=== PATIENT | female | born 1955 | race African-American/Black ===

== ENCOUNTER 2017-10-31 10:58 | Emergency (ER) | payer SELFPAY, BC, MEDICAID | END 2017-10-31 22:20 | disposition left against medical advice (07) | LOC: E/R 22:20 | DX: Z53.21 Procedure and treatment not carried out due to patient leaving prior to being seen by health care provider (principal) ==

== ENCOUNTER 2018-11-10 19:15 | Inpatient (IN) | payer BC, MEDICAID ==
[2018-11-10] MEDS: ALBUTEROL 0.083% (NEB) 2.5 MG/3 ML AMP NEB (20:41)
[2018-11-10] MEDS: IPRATROPIUM (NEB) 0.5 MG/2.5 ML AMP NEB (20:41)
[2018-11-10 20:43] LABS: ADD MAN DIFF? NO
[2018-11-10] MEDS: ONDANSETRON 4 MG INJ IV (20:47)
[2018-11-10] MEDS: ASPIRIN 325 MG TAB PO (20:47)
[2018-11-10] MEDS: morphine 4 MG/ML VIAL IV (20:47)
[2018-11-10 20:59] LABS: INR 0.88; PARTIAL THROMBOPLASTIN TIME 24.4 Sec (23.0-35.0); PT RATIO 0.9
[2018-11-10 21:01] LABS: BASOPHILS % 0.4 % (0.0-2.0); EOSINOPHILS # 0.1 10^3/ul (0.0-0.5); EOSINOPHILS % 1.8 % (0.0-7.0); HEMATOCRIT 42.9 % (37.0-47.0); HEMOGLOBIN 13.4 g/dl (12.0-16.0); LYMPHOCYTES # 2.5 10^3/ul (0.8-2.9); LYMPHOCYTES % 32.4 % (15.0-51.0); MEAN CORPUSCULAR HEMOGLOBIN 26.8 pg (29.0-33.0); MEAN CORPUSCULAR HGB CONC 31.2 g/dl (32.0-37.0); MEAN CORPUSCULAR VOLUME 85.8 fl (82.0-101.0); MEAN PLATELET VOLUME 9.4 fl (7.4-10.4); MONOCYTE # 1.1 10^3/ul (0.3-0.9); MONOCYTES % 13.8 % (0.0-11.0); NEUTROPHIL # 3.9 10^3/ul (1.6-7.5); NEUTROPHILS % 51.3 % (39.0-77.0); PLATELET COUNT 338 10^3/UL (140-415); RED CELL DISTRIBUTION WIDTH 15.9 % (11.5-14.5)
[2018-11-10 21:01] LABS: WHITE BLOOD COUNT 7.7 10^3/ul (4.8-10.8)
[2018-11-10 21:09] LABS: ALANINE AMINOTRANSFERASE 16 IU/L (13-69); ALBUMIN 4.1 g/dl (3.3-4.9); ALKALINE PHOSPHATASE 111 IU/L (42-121); ANION GAP 9 (5-13); ASPARTATE AMINO TRANSFERASE 26 IU/L (15-46); BILIRUBIN,INDIRECT 0.2 mg/dl (0-1.1); BILIRUBIN,TOTAL 0.2 mg/dl (0.2-1.3); BLOOD UREA NITROGEN 14 mg/dl (7-20); CALCIUM 10.1 mg/dl (8.4-10.2); CARBON DIOXIDE 26 mmol/L (21-31); CHLORIDE 108 mmol/L (97-110); CREATINE KINASE 216 IU/L (23-200); CREATININE 1.35 mg/dl (0.44-1.00); Estimated GFR 48 mL/min (>60); GLUCOSE 109 mg/dl (70-220); SODIUM 143 mmol/L (135-144); TOTAL PROTEIN 7.8 g/dl (6.1-8.1)
[2018-11-10 21:20] LABS: B-TYPE NATRIURETIC PEPTIDE 701 PG/ML (0-125); CK INDEX 0.7; CK-MB 1.45 ng/ml (0.0-2.4); TROPONIN-I < 0.012 ng/ml (0.000-0.120)
[2018-11-10] MEDS: METOPROLOL 25 MG TAB PO (23:00)
[2018-11-10] MEDS ORDERED: ACETAMINOPHEN 325 MG TAB PO ×2 (23:00)
[2018-11-10] MEDS ORDERED: ONDANSETRON 4 MG INJ IV (23:00)
[2018-11-10] MEDS ORDERED: DOCUSATE SODIUM 100 MG CAP PO (23:00)
[2018-11-10] MEDS ORDERED: BISACODYL (EC) 5 MG TAB PO (23:00)
[2018-11-10] MEDS ORDERED: NACL 0.9% 3 ML SYG IV (23:00)
[2018-11-10] MEDS ORDERED: NITROGLYCERIN (SL) 0.4 MG TAB SL (23:00)
[2018-11-10] MEDS: AMLODIPINE 5 MG TAB PO (23:00)
[2018-11-10] MEDS ORDERED: GLUCAGON 1 MG INJ IM (23:30)
[2018-11-10] MEDS ORDERED: DEXTROSE 50% 50 ML SYRINGE IV ×2 (23:30)
[2018-11-10] MEDS ORDERED: GLUCOSE GEL 15 GRAM TUBE PO ×2 (23:30)
[2018-11-11] MEDS: morphine 4 MG/ML VIAL IV (00:08)
[2018-11-11] MEDS: ONDANSETRON 4 MG INJ IV (00:09)
[2018-11-11] MEDS: INSULIN GLARGINE [LANTus] (100 UNITS/ML) SYG SC ×2 (00:39→23:00)
[2018-11-11 01:08] LABS: D-DIMER 675.51 ng/ml (<460)
[2018-11-11] MEDS: ACCU-CHEK XX (02:00)
[2018-11-11] MEDS: morphine 2 MG INJ IV ×5 (03:29→23:04)
[2018-11-11] MEDS ORDERED: ENOXAPARIN 80 MG/0.8 ML SYG SC (04:00)
[2018-11-11] MEDS: ENOXAPARIN 80 MG/0.8 ML SYG SC (04:27)
[2018-11-11 05:55] LABS: ADD MAN DIFF? NO
[2018-11-11 06:06] LABS: WHITE BLOOD COUNT 8.1 10^3/ul (4.8-10.8)
[2018-11-11 06:06] LABS: BASOPHILS % 0.4 % (0.0-2.0); EOSINOPHILS # 0.1 10^3/ul (0.0-0.5); EOSINOPHILS % 1.2 % (0.0-7.0); HEMATOCRIT 39.3 % (37.0-47.0); HEMOGLOBIN 11.8 g/dl (12.0-16.0); LYMPHOCYTES # 2.1 10^3/ul (0.8-2.9); LYMPHOCYTES % 25.4 % (15.0-51.0); MEAN CORPUSCULAR HEMOGLOBIN 26.7 pg (29.0-33.0); MEAN CORPUSCULAR VOLUME 88.9 fl (82.0-101.0); MEAN PLATELET VOLUME 9.2 fl (7.4-10.4); MONOCYTE # 0.9 10^3/ul (0.3-0.9); MONOCYTES % 10.9 % (0.0-11.0); NEUTROPHILS % 61.6 % (39.0-77.0); PLATELET COUNT 274 10^3/UL (140-415); RED BLOOD COUNT 4.42 10^6/ul (4.20-5.40); RED CELL DISTRIBUTION WIDTH 15.8 % (11.5-14.5)
[2018-11-11 06:40] LABS: HEMOGLOBIN A1C 7.3 % (0-5.9)
[2018-11-11 06:47] LABS: ALANINE AMINOTRANSFERASE 101 IU/L (13-69); ALBUMIN 3.3 g/dl (3.3-4.9); ALKALINE PHOSPHATASE 122 IU/L (42-121); ANION GAP 0 (5-13); ASPARTATE AMINO TRANSFERASE 284 IU/L (15-46); BILIRUBIN,INDIRECT 0.2 mg/dl (0-1.1); BILIRUBIN,TOTAL 0.2 mg/dl (0.2-1.3); BLOOD UREA NITROGEN 17 mg/dl (7-20); CALCIUM 9.4 mg/dl (8.4-10.2); CARBON DIOXIDE 30 mmol/L (21-31); CHLORIDE 110 mmol/L (97-110); CHOL/HDL RATIO 6.3 RATIO; CHOLESTEROL 208 mg/dl (100-200); CREATININE 1.64 mg/dl (0.44-1.00); Estimated GFR 38 mL/min (>60); GLUCOSE 136 mg/dl (70-220); HDL CHOLESTEROL 33 mg/dl (35-98); LDL CHOLESTEROL,CALCULATED 121 mg/dl; MAGNESIUM 2.1 mg/dl (1.7-2.5); POTASSIUM 4.3 mmol/L (3.5-5.1); SODIUM 140 mmol/L (135-144); TOTAL PROTEIN 6.3 g/dl (6.1-8.1); TRIGLYCERIDES 268 mg/dl (0-149)
[2018-11-11] MEDS: LEVOTHYROXINE 50 MCG TAB PO (06:47)
[2018-11-11 06:55] LABS: C-REACTIVE PROTEIN 0.8 mg/dl (0.0-0.9)
[2018-11-11 07:34] LABS: ERYTHROCYTE SEDIMENTATION RATE 20 mm/Hr (0-30)
[2018-11-11] MEDS: INSULIN ASPART [NOVOLOG] 3 ML PEN SC ×4 (07:43→21:00)
[2018-11-11 07:48] LABS: AADO2 Arterial 51.5 mmHg (7.0-24.0); Allen Test ACCEPTAB; Arterial Base Excess 1.2 mmol/L (-3.0-3); Arterial Blood Gas Oxygen Sat 96.1 mmHG (95.0-98.0); Arterial COHb 0.8 % (0.0-3.0); Arterial Fraction of Oxyhgb 95.1 % (93.0-99.0); Arterial HCO3 26.9 mmol/L (22.0-26.0); Arterial MetHb 0.2 % (0.0-1.5); Arterial pCO2 47.2 mmhg (35-45); MODE NASAL CANNULA; Site Right Radial
[2018-11-11] MEDS: DULOXETINE 20 MG CAP DR PO (08:47)
[2018-11-11] MEDS: CLOPIDOGREL 75 MG TAB PO (08:47)
[2018-11-11] MEDS: METOPROLOL 25 MG TAB PO ×3 (08:48→11:55)
[2018-11-11] MEDS: AMLODIPINE 5 MG TAB PO ×2 (08:48→22:19)
[2018-11-11] MEDS ORDERED: FLUTICASONE/VILANTEROL 100-25 INH (09:00)
[2018-11-11] MEDS ORDERED: FUROSEMIDE 20 MG TAB PO (09:00)
[2018-11-11] MEDS: FUROSEMIDE 20 MG INJ IV (09:23)
[2018-11-11] MEDS ORDERED: ALBUTEROL/IPRATROPIUM (NEB) 3 ML AMP HHN (10:30)
[2018-11-11 13:23] LABS: CREATINE KINASE 174 IU/L (23-200)
[2018-11-11 13:36] LABS: CK INDEX 0.7; CK-MB 1.27 ng/ml (0.0-2.4); TROPONIN-I < 0.012 ng/ml (0.000-0.120)
[2018-11-11 14:13] LABS: LIPASE 157 U/L (23-300)
[2018-11-11 19:31] LABS: CREATINE KINASE 174 IU/L (23-200)
[2018-11-11] MEDS: ARFORMOTEROL TARTRATE 15MCG/2 ML AMP NEB (19:40)
[2018-11-11] MEDS: BUDESONIDE (NEB) 0.25 MG/2 ML AMP HHN (19:40)
[2018-11-11] MEDS: ALBUTEROL/IPRATROPIUM (NEB) 3 ML AMP HHN (19:40)
[2018-11-11 19:45] LABS: CK-MB 1.68 ng/ml (0.0-2.4); TROPONIN-I < 0.012 ng/ml (0.000-0.120)
[2018-11-11] MEDS ORDERED: ATORVASTATIN 20 MG TAB PO ×2 (21:00)
[2018-11-11] MEDS: SOD CHLORIDE 0.45% 1,000 ML IV (22:17)
[2018-11-11] MEDS: ATORVASTATIN 80 MG TAB PO (22:18)
[2018-11-11] MEDS: EZETIMIBE 10 MG TAB PO (22:19)
[2018-11-12] MEDS: ACCU-CHEK XX (02:00)
[2018-11-12] MEDS: morphine 2 MG INJ IV ×5 (03:19→20:56)
[2018-11-12] MEDS ORDERED: ENOXAPARIN 80 MG/0.8 ML SYG SC (04:00)
[2018-11-12 06:52] LABS: ADD MAN DIFF? NO
[2018-11-12 06:55] LABS: BASOPHILS % 0.3 % (0.0-2.0); EOSINOPHILS # 0.2 10^3/ul (0.0-0.5); EOSINOPHILS % 2.2 % (0.0-7.0); HEMATOCRIT 39.5 % (37.0-47.0); HEMOGLOBIN 12.1 g/dl (12.0-16.0); LYMPHOCYTES # 2.2 10^3/ul (0.8-2.9); LYMPHOCYTES % 25.9 % (15.0-51.0); MEAN CORPUSCULAR HEMOGLOBIN 26.8 pg (29.0-33.0); MEAN CORPUSCULAR HGB CONC 30.6 g/dl (32.0-37.0); MEAN CORPUSCULAR VOLUME 87.4 fl (82.0-101.0); MEAN PLATELET VOLUME 9.8 fl (7.4-10.4); MONOCYTE # 0.9 10^3/ul (0.3-0.9); MONOCYTES % 10.5 % (0.0-11.0); NEUTROPHIL # 5.2 10^3/ul (1.6-7.5); NEUTROPHILS % 60.9 % (39.0-77.0); PLATELET COUNT 278 10^3/UL (140-415); RED BLOOD COUNT 4.52 10^6/ul (4.20-5.40); RED CELL DISTRIBUTION WIDTH 15.5 % (11.5-14.5)
[2018-11-12 06:55] LABS: WHITE BLOOD COUNT 8.6 10^3/ul (4.8-10.8)
[2018-11-12 07:21] LABS: B-TYPE NATRIURETIC PEPTIDE 249 PG/ML (0-125)
[2018-11-12 07:22] LABS: ALANINE AMINOTRANSFERASE 84 IU/L (13-69); ALBUMIN 3.5 g/dl (3.3-4.9); ALBUMIN/GLOBULIN RATIO 1.02; ALKALINE PHOSPHATASE 165 IU/L (42-121); ANION GAP 2 (5-13); ASPARTATE AMINO TRANSFERASE 124 IU/L (15-46); BILIRUBIN,INDIRECT 0.5 mg/dl (0-1.1); BILIRUBIN,TOTAL 0.5 mg/dl (0.2-1.3); BLOOD UREA NITROGEN 19 mg/dl (7-20); CALCIUM 9.1 mg/dl (8.4-10.2); CARBON DIOXIDE 29 mmol/L (21-31); CHLORIDE 108 mmol/L (97-110); CREATININE 1.59 mg/dl (0.44-1.00); Estimated GFR 40 mL/min (>60); GLUCOSE 72 mg/dl (70-220); MAGNESIUM 2.2 mg/dl (1.7-2.5); POTASSIUM 4.3 mmol/L (3.5-5.1); SODIUM 139 mmol/L (135-144); TOTAL PROTEIN 6.9 g/dl (6.1-8.1)
[2018-11-12] MEDS: INSULIN ASPART [NOVOLOG] 3 ML PEN SC ×4 (07:36→21:50)
[2018-11-12] MEDS: LEVOTHYROXINE 50 MCG TAB PO (07:40)
[2018-11-12 08:00] LABS: HEPATITIS B SURFACE ANTIBODY NEGATIVE (NEGATIVE)
[2018-11-12 08:01] LABS: HEPATITIS B SURFACE ANTIGEN NEGATIVE (NEGATIVE)
[2018-11-12 08:19] LABS: HEPATITIS B CORE ANTIBODY NEGATIVE (NEGATIVE); HEPATITIS C VIRAL ANTIBODY NEGATIVE (NEGATIVE)
[2018-11-12] MEDS: BUDESONIDE (NEB) 0.25 MG/2 ML AMP HHN ×2 (08:19→20:15)
[2018-11-12] MEDS: ARFORMOTEROL TARTRATE 15MCG/2 ML AMP NEB ×2 (08:19→20:14)
[2018-11-12] MEDS: ALBUTEROL/IPRATROPIUM (NEB) 3 ML AMP HHN ×3 (08:19→20:14)
[2018-11-12] MEDS: ONDANSETRON 4 MG TAB PO (08:32)
[2018-11-12] MEDS: DULOXETINE 20 MG CAP DR PO (08:32)
[2018-11-12] MEDS: CLOPIDOGREL 75 MG TAB PO (08:32)
[2018-11-12] MEDS: ASPIRIN (EC) 81 MG TAB PO (08:32)
[2018-11-12] MEDS: AMLODIPINE 5 MG TAB PO ×2 (08:32→20:56)
[2018-11-12] MEDS: ENOXAPARIN 30 MG/0.3 ML SYG SC (08:39)
[2018-11-12] MEDS: DEXTROSE 5%-0.45% NACL 1,000 ML IV (11:48)
[2018-11-12] MEDS: REGADENOSON 0.4 MG/5 ML SYG (15:35)
[2018-11-12] MEDS: LORAZEPAM 2 MG INJ IV ×2 (18:38→20:00)
[2018-11-12] MEDS: ATORVASTATIN 80 MG TAB PO (20:56)
[2018-11-12] MEDS: EZETIMIBE 10 MG TAB PO (20:56)
[2018-11-12] MEDS: INSULIN GLARGINE [LANTus] (100 UNITS/ML) SYG SC (21:50)
[2018-11-13] MEDS: ACCU-CHEK XX (02:45)
[2018-11-13] MEDS: morphine 2 MG INJ IV ×4 (02:56→16:50)
[2018-11-13 06:02] LABS: ADD MAN DIFF? NO
[2018-11-13 06:08] LABS: WHITE BLOOD COUNT 7.1 10^3/ul (4.8-10.8)
[2018-11-13 06:08] LABS: BASOPHILS % 0.3 % (0.0-2.0); EOSINOPHILS # 0.1 10^3/ul (0.0-0.5); EOSINOPHILS % 1.4 % (0.0-7.0); HEMATOCRIT 37.2 % (37.0-47.0); HEMOGLOBIN 11.6 g/dl (12.0-16.0); LYMPHOCYTES % 27.9 % (15.0-51.0); MEAN CORPUSCULAR HEMOGLOBIN 26.9 pg (29.0-33.0); MEAN CORPUSCULAR HGB CONC 31.2 g/dl (32.0-37.0); MEAN CORPUSCULAR VOLUME 86.1 fl (82.0-101.0); MEAN PLATELET VOLUME 9.6 fl (7.4-10.4); MONOCYTE # 0.7 10^3/ul (0.3-0.9); MONOCYTES % 9.5 % (0.0-11.0); NEUTROPHIL # 4.3 10^3/ul (1.6-7.5); NEUTROPHILS % 60.5 % (39.0-77.0); PLATELET COUNT 262 10^3/UL (140-415); RED BLOOD COUNT 4.32 10^6/ul (4.20-5.40); RED CELL DISTRIBUTION WIDTH 15.3 % (11.5-14.5)
[2018-11-13] MEDS: LEVOTHYROXINE 50 MCG TAB PO (06:43)
[2018-11-13 06:54] LABS: ALANINE AMINOTRANSFERASE 61 IU/L (13-69); ALBUMIN 3.4 g/dl (3.3-4.9); ALBUMIN/GLOBULIN RATIO 1.09; ALKALINE PHOSPHATASE 163 IU/L (42-121); ANION GAP 4 (5-13); ASPARTATE AMINO TRANSFERASE 54 IU/L (15-46); BILIRUBIN,INDIRECT 0.3 mg/dl (0-1.1); BILIRUBIN,TOTAL 0.3 mg/dl (0.2-1.3); BLOOD UREA NITROGEN 21 mg/dl (7-20); CALCIUM 9.2 mg/dl (8.4-10.2); CARBON DIOXIDE 28 mmol/L (21-31); CHLORIDE 107 mmol/L (97-110); CREATININE 1.42 mg/dl (0.44-1.00); Estimated GFR 45 mL/min (>60); GLUCOSE 76 mg/dl (70-220); POTASSIUM 4.1 mmol/L (3.5-5.1); SODIUM 139 mmol/L (135-144); TOTAL PROTEIN 6.5 g/dl (6.1-8.1)
[2018-11-13] MEDS: GLUCOSE GEL 15 GRAM TUBE BUCCAL ×2 (07:38→07:57)
[2018-11-13] MEDS: INSULIN ASPART [NOVOLOG] 3 ML PEN SC ×3 (07:55→17:26)
[2018-11-13] MEDS: ALBUTEROL/IPRATROPIUM (NEB) 3 ML AMP HHN ×2 (08:00→14:14)
[2018-11-13] MEDS: CLOPIDOGREL 75 MG TAB PO (08:22)
[2018-11-13] MEDS: DULOXETINE 20 MG CAP DR PO (08:22)
[2018-11-13] MEDS: LORATADINE 10 MG TAB PO (08:22)
[2018-11-13] MEDS: ASPIRIN (EC) 81 MG TAB PO (08:22)
[2018-11-13] MEDS: ENOXAPARIN 30 MG/0.3 ML SYG SC (08:23)
[2018-11-13] MEDS: AMLODIPINE 5 MG TAB PO (08:26)
[2018-11-13] MEDS: ARFORMOTEROL TARTRATE 15MCG/2 ML AMP NEB (09:37)
[2018-11-13] MEDS: BUDESONIDE (NEB) 0.25 MG/2 ML AMP HHN (09:37)
== END 2018-11-13 18:19 | disposition home or self-care (01) | DRG 291 ==
LOC: TEL 22:45 → E/R 19:15
DX: I13.0 Hypertensive heart and chronic kidney disease with heart failure and stage 1 through stage 4 chronic kidney disease, or unspecified chronic kidney disease (principal); I50.31 Acute diastolic (congestive) heart failure; J44.1 Chronic obstructive pulmonary disease with (acute) exacerbation; N17.9 Acute kidney failure, unspecified; E11.22 Type 2 diabetes mellitus with diabetic chronic kidney disease; E11.40 Type 2 diabetes mellitus with diabetic neuropathy, unspecified; Z95.1 Presence of aortocoronary bypass graft; J44.9 Chronic obstructive pulmonary disease, unspecified; I25.10 Atherosclerotic heart disease of native coronary artery without angina pectoris; I11.0 Hypertensive heart disease with heart failure; I50.9 Heart failure, unspecified; E03.9 Hypothyroidism, unspecified; E78.5 Hyperlipidemia, unspecified; N18.9 Chronic kidney disease, unspecified; I25.2 Old myocardial infarction; Z79.4 Long term (current) use of insulin; Z87.891 Personal history of nicotine dependence; Z90.710 Acquired absence of both cervix and uterus; Z95.5 Presence of coronary angioplasty implant and graft; Z90.49 Acquired absence of other specified parts of digestive tract
CPT/HCPCS: 36600; 71045; 74181; 76705; 78452; 78582; 80053; 80061; 82550; 82553; 82803; 82962; 83036; 83690; 83735; 83880; 84443; 84484; 85025; 85378; 85610; 85651; 85730; 86140; 86704; 86706; 86803; 87340; 93005; 93017; 93306; 93970; 94640; 94664; 96374; 96375; 99285-25; G0378

== ENCOUNTER 2019-01-14 14:05 | Inpatient (IN) | payer BC, MEDICAID ==
[2019-01-14] MEDS: NITROGLYCERIN 2% 1 GM OINT PKT TD (14:46)
[2019-01-14] MEDS: ONDANSETRON 4 MG INJ IV ×2 (14:46→21:36)
[2019-01-14] MEDS: morphine 4 MG/ML VIAL IV (14:46)
[2019-01-14] MEDS: ASPIRIN 325 MG TAB PO (14:46)
[2019-01-14 15:09] LABS: ADD MAN DIFF? NO
[2019-01-14 15:15] LABS: BASOPHILS % 0.2 % (0.0-2.0); EOSINOPHILS # 0.2 10^3/ul (0.0-0.5); EOSINOPHILS % 1.7 % (0.0-7.0); HEMATOCRIT 37.5 % (37.0-47.0); HEMOGLOBIN 11.9 g/dl (12.0-16.0); LYMPHOCYTES # 2.7 10^3/ul (0.8-2.9); LYMPHOCYTES % 23.8 % (15.0-51.0); MEAN CORPUSCULAR HEMOGLOBIN 26.6 pg (29.0-33.0); MEAN CORPUSCULAR HGB CONC 31.7 g/dl (32.0-37.0); MEAN CORPUSCULAR VOLUME 83.9 fl (82.0-101.0); MEAN PLATELET VOLUME 9.6 fl (7.4-10.4); MONOCYTE # 0.9 10^3/ul (0.3-0.9); MONOCYTES % 7.6 % (0.0-11.0); NEUTROPHIL # 7.4 10^3/ul (1.6-7.5); NEUTROPHILS % 66.3 % (39.0-77.0); PLATELET COUNT 272 10^3/UL (140-415); RED BLOOD COUNT 4.47 10^6/ul (4.20-5.40); RED CELL DISTRIBUTION WIDTH 15.6 % (11.5-14.5)
[2019-01-14 15:15] LABS: WHITE BLOOD COUNT 11.1 10^3/ul (4.8-10.8)
[2019-01-14] MEDS: LEVALBUTEROL (NEB) 1.25 MG/0.5 ML AMP INH (15:16)
[2019-01-14 15:40] LABS: ALANINE AMINOTRANSFERASE 18 IU/L (13-69); ALBUMIN 3.7 g/dl (3.3-4.9); ALBUMIN/GLOBULIN RATIO 1.12; ALKALINE PHOSPHATASE 122 IU/L (42-121); ANION GAP 8 (5-13); ASPARTATE AMINO TRANSFERASE 22 IU/L (15-46); BILIRUBIN,INDIRECT 0.6 mg/dl (0-1.1); BILIRUBIN,TOTAL 0.6 mg/dl (0.2-1.3); BLOOD UREA NITROGEN 20 mg/dl (7-20); CALCIUM 9.6 mg/dl (8.4-10.2); CARBON DIOXIDE 24 mmol/L (21-31); CHLORIDE 106 mmol/L (97-110); CREATININE 1.18 mg/dl (0.44-1.00); Estimated GFR 56 mL/min (>60); GLUCOSE 375 mg/dl (70-220); POTASSIUM 4.3 mmol/L (3.5-5.1); SODIUM 138 mmol/L (135-144)
[2019-01-14 15:51] LABS: B-TYPE NATRIURETIC PEPTIDE 312 PG/ML (0-125); TROPONIN-I < 0.012 ng/ml (0.000-0.120)
[2019-01-14] MEDS ORDERED: ONDANSETRON 4 MG INJ IV (17:00)
[2019-01-14] MEDS ORDERED: ACETAMINOPHEN 325 MG TAB PO ×2 (17:00→17:30)
[2019-01-14] MEDS ORDERED: NACL 0.9% 3 ML SYG IV (17:30)
[2019-01-14] MEDS ORDERED: GLUCAGON 1 MG INJ IM (18:00)
[2019-01-14] MEDS ORDERED: DEXTROSE 50% 50 ML SYRINGE IV ×2 (18:00)
[2019-01-14] MEDS ORDERED: GLUCOSE GEL 15 GRAM TUBE BUCCAL (18:00)
[2019-01-14] MEDS ORDERED: GLUCOSE GEL 15 GRAM TUBE PO ×2 (18:00)
[2019-01-14] MEDS: predniSONE 20 MG TAB PO (18:18)
[2019-01-14] MEDS: ISOSORBIDE MONONITRATE(SR)60 MG TAB PO (18:18)
[2019-01-14] MEDS: FUROSEMIDE 40 MG INJ IV (18:18)
[2019-01-14] MEDS: HYDROCODONE/APAP (5/325) TAB PO ×2 (18:19→23:59)
[2019-01-14] MEDS: INSULIN ASPART [NOVOLOG] 3 ML PEN SC ×3 (18:40→23:03)
[2019-01-14 19:59] LABS: TROPONIN-I < 0.012 ng/ml (0.000-0.120)
[2019-01-14] MEDS: ATORVASTATIN 80 MG TAB PO (20:54)
[2019-01-14] MEDS: morphine 2 MG INJ IV (21:34)
[2019-01-14] MEDS: ACCU-CHEK XX (21:40)
[2019-01-14] MEDS: INSULIN GLARGINE [LANTus] (100 UNITS/ML) SYG SC (23:02)
[2019-01-14 23:12] LABS: CREATINE KINASE 286 IU/L (23-200)
[2019-01-14 23:23] LABS: CK INDEX 0.7; CK-MB 1.88 ng/ml (0.0-2.4); TROPONIN-I 0.012 ng/ml (0.000-0.120)
[2019-01-15] MEDS: ALBUTEROL/IPRATROPIUM (NEB) 3 ML AMP HHN ×2 (00:06→10:02)
[2019-01-15] MEDS: INSULIN ASPART [NOVOLOG] 3 ML PEN SC ×7 (00:15→20:21)
[2019-01-15] MEDS: ACCU-CHEK XX ×2 (00:15→02:50)
[2019-01-15] MEDS: morphine 2 MG INJ IV ×6 (01:34→22:42)
[2019-01-15 02:03] LABS: TROPONIN-I < 0.012 ng/ml (0.000-0.120)
[2019-01-15] MEDS: HYDROCODONE/APAP (5/325) TAB PO ×2 (05:30→17:27)
[2019-01-15 06:00] LABS: ADD MAN DIFF? NO
[2019-01-15 06:09] LABS: BASOPHILS % 0.1 % (0.0-2.0); HEMOGLOBIN 11.6 g/dl (12.0-16.0); LYMPHOCYTES # 1.5 10^3/ul (0.8-2.9); LYMPHOCYTES % 11.4 % (15.0-51.0); MEAN CORPUSCULAR HEMOGLOBIN 26.7 pg (29.0-33.0); MEAN CORPUSCULAR HGB CONC 31.4 g/dl (32.0-37.0); MEAN CORPUSCULAR VOLUME 85.1 fl (82.0-101.0); MEAN PLATELET VOLUME 9.5 fl (7.4-10.4); MONOCYTE # 0.4 10^3/ul (0.3-0.9); MONOCYTES % 2.7 % (0.0-11.0); NEUTROPHIL # 11.5 10^3/ul (1.6-7.5); NEUTROPHILS % 85.1 % (39.0-77.0); PLATELET COUNT 286 10^3/UL (140-415); RED BLOOD COUNT 4.35 10^6/ul (4.20-5.40); RED CELL DISTRIBUTION WIDTH 15.5 % (11.5-14.5)
[2019-01-15 06:09] LABS: WHITE BLOOD COUNT 13.5 10^3/ul (4.8-10.8)
[2019-01-15] MEDS: FUROSEMIDE 40 MG INJ IV (06:11)
[2019-01-15] MEDS: LEVOTHYROXINE 50 MCG TAB PO (06:11)
[2019-01-15 06:50] LABS: ALANINE AMINOTRANSFERASE 46 IU/L (13-69); ALBUMIN 3.7 g/dl (3.3-4.9); ALBUMIN/GLOBULIN RATIO 1.08; ALKALINE PHOSPHATASE 156 IU/L (42-121); ANION GAP 11 (5-13); ASPARTATE AMINO TRANSFERASE 62 IU/L (15-46); BILIRUBIN,INDIRECT 0.3 mg/dl (0-1.1); BILIRUBIN,TOTAL 0.3 mg/dl (0.2-1.3); BLOOD UREA NITROGEN 31 mg/dl (7-20); CALCIUM 9.7 mg/dl (8.4-10.2); CARBON DIOXIDE 22 mmol/L (21-31); CHLORIDE 104 mmol/L (97-110); CREATININE 2.13 mg/dl (0.44-1.00); Estimated GFR 28 mL/min (>60); GLUCOSE 315 mg/dl (70-220); MAGNESIUM 1.9 mg/dl (1.7-2.5); PHOSPHORUS 3.8 mg/dl (2.5-4.9); SODIUM 137 mmol/L (135-144); TOTAL PROTEIN 7.1 g/dl (6.1-8.1)
[2019-01-15 06:54] LABS: POTASSIUM 6.1 mmol/L (3.5-5.1)
[2019-01-15 06:56] LABS: FREE THYROXINE INDEX (Calc) 2.82 ug/ml (0.65-3.89); T3 UPTAKE 32.4 % (23.5-40.5); T4 (THYROXINE) 8.7 ug/dl (5.5-11.0)
[2019-01-15 07:10] LABS: THYROID STIMULATING HORMONE 0.615 MIU/L (0.465-4.680)
[2019-01-15] MEDS: NA POLYST SULFON 15 GM/60 ML BTL PO (07:24)
[2019-01-15] MEDS: ASPIRIN (EC) 81 MG TAB PO (08:09)
[2019-01-15] MEDS: predniSONE 20 MG TAB PO (08:09)
[2019-01-15] MEDS: ISOSORBIDE MONONITRATE(SR)60 MG TAB PO (08:10)
[2019-01-15] MEDS: CLOPIDOGREL 75 MG TAB PO (08:10)
[2019-01-15 08:11] LABS: HEMOGLOBIN A1C 11.4 % (0-5.9)
[2019-01-15] MEDS: FLUTICASONE/VILANTEROL 200-25 INH DEVICE INH (08:11)
[2019-01-15] MEDS: ENOXAPARIN 40 MG/0.4 ML SYG SC (08:34)
[2019-01-15 12:00] LABS: ANION GAP 13 (5-13); BLOOD UREA NITROGEN 35 mg/dl (7-20); CALCIUM 9.7 mg/dl (8.4-10.2); CARBON DIOXIDE 21 mmol/L (21-31); CHLORIDE 102 mmol/L (97-110); CREATININE 2.34 mg/dl (0.44-1.00); Estimated GFR 25 mL/min (>60); GLUCOSE 313 mg/dl (70-220); POTASSIUM 4.9 mmol/L (3.5-5.1); SODIUM 136 mmol/L (135-144)
[2019-01-15 15:32] LABS: ANION GAP 12 (5-13); BLOOD UREA NITROGEN 37 mg/dl (7-20); CALCIUM 9.2 mg/dl (8.4-10.2); CARBON DIOXIDE 23 mmol/L (21-31); CHLORIDE 100 mmol/L (97-110); CREATININE 2.28 mg/dl (0.44-1.00); Estimated GFR 26 mL/min (>60); GLUCOSE 348 mg/dl (70-220); POTASSIUM 4.5 mmol/L (3.5-5.1); SODIUM 135 mmol/L (135-144)
[2019-01-15 17:22] LABS: B-TYPE NATRIURETIC PEPTIDE 166 PG/ML (0-125)
[2019-01-15] MEDS: ATORVASTATIN 80 MG TAB PO (20:08)
[2019-01-15] MEDS: INSULIN GLARGINE [LANTus] (100 UNITS/ML) SYG SC (20:21)
[2019-01-15] MEDS: ONDANSETRON 4 MG INJ IV (22:44)
[2019-01-16] MEDS: ACCU-CHEK XX (02:00)
[2019-01-16 05:32] LABS: ADD MAN DIFF? NO
[2019-01-16 05:35] LABS: BASOPHILS % 0.1 % (0.0-2.0); HEMATOCRIT 32.7 % (37.0-47.0); HEMOGLOBIN 10.6 g/dl (12.0-16.0); LYMPHOCYTES # 2.3 10^3/ul (0.8-2.9); LYMPHOCYTES % 12.1 % (15.0-51.0); MEAN CORPUSCULAR HEMOGLOBIN 27.2 pg (29.0-33.0); MEAN CORPUSCULAR HGB CONC 32.4 g/dl (32.0-37.0); MEAN CORPUSCULAR VOLUME 83.8 fl (82.0-101.0); MEAN PLATELET VOLUME 9.5 fl (7.4-10.4); MONOCYTE # 1.3 10^3/ul (0.3-0.9); MONOCYTES % 6.7 % (0.0-11.0); NEUTROPHIL # 15.3 10^3/ul (1.6-7.5); NEUTROPHILS % 80.5 % (39.0-77.0); PLATELET COUNT 267 10^3/UL (140-415); RED CELL DISTRIBUTION WIDTH 15.5 % (11.5-14.5)
[2019-01-16 05:56] LABS: ANION GAP 10 (5-13); BLOOD UREA NITROGEN 44 mg/dl (7-20); CALCIUM 9.1 mg/dl (8.4-10.2); CARBON DIOXIDE 26 mmol/L (21-31); CHLORIDE 102 mmol/L (97-110); Estimated GFR 32 mL/min (>60); GLUCOSE 135 mg/dl (70-220); PHOSPHORUS 4.9 mg/dl (2.5-4.9); SODIUM 138 mmol/L (135-144)
[2019-01-16] MEDS: morphine 2 MG INJ IV ×4 (06:13→21:12)
[2019-01-16] MEDS: LEVOTHYROXINE 50 MCG TAB PO (06:13)
[2019-01-16] MEDS: ONDANSETRON 4 MG INJ IV (06:13)
[2019-01-16] MEDS: INSULIN ASPART [NOVOLOG] 3 ML PEN SC ×7 (08:00→21:18)
[2019-01-16] MEDS: ISOSORBIDE MONONITRATE(SR)60 MG TAB PO ×2 (08:32→18:44)
[2019-01-16] MEDS: CLOPIDOGREL 75 MG TAB PO (08:33)
[2019-01-16] MEDS: HYDROCODONE/APAP (5/325) TAB PO ×2 (08:33→22:50)
[2019-01-16] MEDS: ASPIRIN (EC) 81 MG TAB PO (08:33)
[2019-01-16] MEDS: predniSONE 20 MG TAB PO (08:33)
[2019-01-16] MEDS: FLUTICASONE/VILANTEROL 200-25 INH DEVICE INH (08:34)
[2019-01-16] MEDS: ENOXAPARIN 40 MG/0.4 ML SYG SC (08:39)
[2019-01-16 15:22] LABS: TROPONIN-I < 0.012 ng/ml (0.000-0.120)
[2019-01-16] MEDS: ATORVASTATIN 80 MG TAB PO (21:13)
[2019-01-16] MEDS: INSULIN GLARGINE [LANTus] (100 UNITS/ML) SYG SC (21:15)
[2019-01-17] MEDS: ACCU-CHEK XX (02:00)
[2019-01-17] MEDS: LEVOTHYROXINE 50 MCG TAB PO (06:37)
[2019-01-17] MEDS: morphine 2 MG INJ IV (06:42)
[2019-01-17] MEDS: INSULIN ASPART [NOVOLOG] 3 ML PEN SC ×4 (08:00→12:19)
[2019-01-17] MEDS: CLOPIDOGREL 75 MG TAB PO (08:21)
[2019-01-17] MEDS: predniSONE 20 MG TAB PO (08:21)
[2019-01-17] MEDS: ISOSORBIDE MONONITRATE(SR)60 MG TAB PO (08:21)
[2019-01-17] MEDS: FUROSEMIDE 20 MG TAB PO (08:22)
[2019-01-17] MEDS: ASPIRIN (EC) 81 MG TAB PO (08:22)
[2019-01-17] MEDS: ONDANSETRON 4 MG INJ IV (08:23)
[2019-01-17] MEDS: FLUTICASONE/VILANTEROL 200-25 INH DEVICE INH (08:25)
[2019-01-17] MEDS: ENOXAPARIN 40 MG/0.4 ML SYG SC (08:47)
[2019-01-17 10:04] LABS: ADD MAN DIFF? NO
[2019-01-17 10:07] LABS: BASOPHILS % 0.2 % (0.0-2.0); EOSINOPHILS # 0.1 10^3/ul (0.0-0.5); EOSINOPHILS % 0.5 % (0.0-7.0); HEMATOCRIT 33.9 % (37.0-47.0); HEMOGLOBIN 10.5 g/dl (12.0-16.0); LYMPHOCYTES # 3.3 10^3/ul (0.8-2.9); LYMPHOCYTES % 29.7 % (15.0-51.0); MEAN CORPUSCULAR HEMOGLOBIN 26.9 pg (29.0-33.0); MEAN CORPUSCULAR VOLUME 86.7 fl (82.0-101.0); MEAN PLATELET VOLUME 9.6 fl (7.4-10.4); MONOCYTE # 1.1 10^3/ul (0.3-0.9); MONOCYTES % 9.6 % (0.0-11.0); NEUTROPHIL # 6.6 10^3/ul (1.6-7.5); NEUTROPHILS % 59.6 % (39.0-77.0); PLATELET COUNT 285 10^3/UL (140-415); RED BLOOD COUNT 3.91 10^6/ul (4.20-5.40); RED CELL DISTRIBUTION WIDTH 15.8 % (11.5-14.5)
[2019-01-17 10:32] LABS: ANION GAP 7 (5-13); BLOOD UREA NITROGEN 38 mg/dl (7-20); CALCIUM 9.6 mg/dl (8.4-10.2); CARBON DIOXIDE 27 mmol/L (21-31); CHLORIDE 106 mmol/L (97-110); CREATININE 1.57 mg/dl (0.44-1.00); Estimated GFR 40 mL/min (>60); GLUCOSE 114 mg/dl (70-220); MAGNESIUM 2.2 mg/dl (1.7-2.5); PHOSPHORUS 4.3 mg/dl (2.5-4.9); POTASSIUM 3.5 mmol/L (3.5-5.1); SODIUM 140 mmol/L (135-144)
== END 2019-01-17 15:20 | disposition home or self-care (01) | DRG 191 ==
LOC: E/R 14:05 → 6WM 17:01
DX: J44.1 Chronic obstructive pulmonary disease with (acute) exacerbation (principal); I13.0 Hypertensive heart and chronic kidney disease with heart failure and stage 1 through stage 4 chronic kidney disease, or unspecified chronic kidney disease; I50.32 Chronic diastolic (congestive) heart failure; N17.9 Acute kidney failure, unspecified; N18.9 Chronic kidney disease, unspecified; I25.10 Atherosclerotic heart disease of native coronary artery without angina pectoris; Z95.5 Presence of coronary angioplasty implant and graft; Z95.1 Presence of aortocoronary bypass graft; E03.9 Hypothyroidism, unspecified; Z87.891 Personal history of nicotine dependence; E11.22 Type 2 diabetes mellitus with diabetic chronic kidney disease; E11.65 Type 2 diabetes mellitus with hyperglycemia; E78.5 Hyperlipidemia, unspecified
CPT/HCPCS: 36415; 71045; 71250; 80048; 80053; 82550; 82553; 82962; 83036; 83735; 83880; 84100; 84436; 84443; 84479; 84484; 85025; 93005; 94640; 94664; 96374; 96375; 97161; 99285-25; G0378

== ENCOUNTER 2019-04-19 16:34 | Inpatient (IN) | payer BC, MEDICAID ==
[2019-04-19] MEDS ORDERED: NITROGLYCERIN (SL) 0.4 MG TAB SL (17:30)
[2019-04-19] MEDS: ASPIRIN 325 MG TAB PO (17:42)
[2019-04-19] MEDS: IPRATROPIUM (NEB) 0.5 MG/2.5 ML AMP NEB (17:56)
[2019-04-19] MEDS: ALBUTEROL 0.083% (NEB) 2.5 MG/3 ML AMP NEB (17:56)
[2019-04-19 18:18] LABS: ADD MAN DIFF? NO
[2019-04-19] MEDS: METHYLPREDNISOLONE 125 MG INJ IV (18:20)
[2019-04-19 18:30] LABS: BASOPHILS % 0.3 % (0.0-2.0); EOSINOPHILS # 0.5 10^3/ul (0.0-0.5); EOSINOPHILS % 3.9 % (0.0-7.0); HEMATOCRIT 31.5 % (37.0-47.0); HEMOGLOBIN 9.4 g/dl (12.0-16.0); LYMPHOCYTES # 3.6 10^3/ul (0.8-2.9); LYMPHOCYTES % 29.8 % (15.0-51.0); MEAN CORPUSCULAR HEMOGLOBIN 26.6 pg (29.0-33.0); MEAN CORPUSCULAR HGB CONC 29.8 g/dl (32.0-37.0); MEAN PLATELET VOLUME 9.1 fl (7.4-10.4); MONOCYTE # 1.1 10^3/ul (0.3-0.9); MONOCYTES % 9.1 % (0.0-11.0); NEUTROPHIL # 6.8 10^3/ul (1.6-7.5); NEUTROPHILS % 56.6 % (39.0-77.0); PLATELET COUNT 343 10^3/UL (140-415); RED BLOOD COUNT 3.54 10^6/ul (4.20-5.40); RED CELL DISTRIBUTION WIDTH 17.9 % (11.5-14.5)
[2019-04-19 18:30] LABS: WHITE BLOOD COUNT 12.1 10^3/ul (4.8-10.8)
[2019-04-19] MEDS: ONDANSETRON 4 MG INJ IV ×2 (18:37→22:05)
[2019-04-19 18:38] LABS: ALANINE AMINOTRANSFERASE 23 IU/L (13-69); ALBUMIN 3.8 g/dl (3.3-4.9); ALBUMIN/GLOBULIN RATIO 1.02; ALKALINE PHOSPHATASE 64 IU/L (42-121); ANION GAP 7 (5-13); ASPARTATE AMINO TRANSFERASE 21 IU/L (15-46); BILIRUBIN,INDIRECT 0.3 mg/dl (0-1.1); BILIRUBIN,TOTAL 0.3 mg/dl (0.2-1.3); BLOOD UREA NITROGEN 15 mg/dl (7-20); CALCIUM 9.7 mg/dl (8.4-10.2); CARBON DIOXIDE 25 mmol/L (21-31); CHLORIDE 111 mmol/L (97-110); CREATINE KINASE 88 IU/L (23-200); CREATININE 1.23 mg/dl (0.44-1.00); Estimated GFR 53 mL/min (>60); GLUCOSE 117 mg/dl (70-220); LIPASE 159 U/L (23-300); POTASSIUM 3.7 mmol/L (3.5-5.1); SODIUM 143 mmol/L (135-144); TOTAL PROTEIN 7.5 g/dl (6.1-8.1)
[2019-04-19] MEDS: morphine 4 MG/ML VIAL IV ×2 (18:38→22:05)
[2019-04-19 18:40] LABS: INR 0.86; PROTIME 11.8 Sec (11.9-14.9); PT RATIO 0.9
[2019-04-19 18:41] LABS: PARTIAL THROMBOPLASTIN TIME 24.1 Sec (23.0-35.0)
[2019-04-19 18:50] LABS: B-TYPE NATRIURETIC PEPTIDE 2620 PG/ML (0-125); CK INDEX 0.8; CK-MB 0.69 ng/ml (0.0-2.4); TROPONIN-I < 0.012 ng/ml (0.000-0.120)
[2019-04-19] MEDS ORDERED: ONDANSETRON 4 MG INJ IV (21:00)
[2019-04-19] MEDS ORDERED: ACETAMINOPHEN 325 MG TAB PO ×2 (21:00→23:00)
[2019-04-19] MEDS: FUROSEMIDE 40 MG INJ IV (21:04)
[2019-04-19] MEDS: ALBUTEROL 0.5% (NEB) 2.5 MG/0.5 ML AMP INH (21:14)
[2019-04-19] MEDS: IPRATROPIUM (NEB) 0.5 MG/2.5 ML AMP INH (21:14)
[2019-04-19] MEDS ORDERED: ALBUTEROL/IPRATROPIUM (NEB) 3 ML AMP HHN (23:00)
[2019-04-19] MEDS ORDERED: NACL 0.9% 3 ML SYG IV (23:00)
[2019-04-19 23:36] LABS: CREATINE KINASE 81 IU/L (23-200)
[2019-04-19 23:46] LABS: CK INDEX 0.9; CK-MB 0.76 ng/ml (0.0-2.4)
[2019-04-19 23:50] LABS: TROPONIN-I < 0.012 ng/ml (0.000-0.120)
[2019-04-19] MEDS: hydrALAzine 20 MG INJ IV (23:50)
[2019-04-20] MEDS: morphine 2 MG INJ IV ×4 (02:51→20:36)
[2019-04-20 04:48] LABS: ADD MAN DIFF? NO
[2019-04-20 05:03] LABS: BASOPHILS % 0.1 % (0.0-2.0); HEMOGLOBIN 9.1 g/dl (12.0-16.0); LYMPHOCYTES # 1.3 10^3/ul (0.8-2.9); LYMPHOCYTES % 9.3 % (15.0-51.0); MEAN CORPUSCULAR HEMOGLOBIN 26.5 pg (29.0-33.0); MEAN CORPUSCULAR HGB CONC 30.3 g/dl (32.0-37.0); MEAN CORPUSCULAR VOLUME 87.5 fl (82.0-101.0); MEAN PLATELET VOLUME 9.3 fl (7.4-10.4); MONOCYTE # 0.1 10^3/ul (0.3-0.9); NEUTROPHIL # 12.2 10^3/ul (1.6-7.5); NEUTROPHILS % 89.2 % (39.0-77.0); PLATELET COUNT 352 10^3/UL (140-415); RED BLOOD COUNT 3.43 10^6/ul (4.20-5.40); RED CELL DISTRIBUTION WIDTH 17.8 % (11.5-14.5)
[2019-04-20 05:03] LABS: WHITE BLOOD COUNT 13.7 10^3/ul (4.8-10.8)
[2019-04-20 05:06] LABS: CREATINE KINASE 66 IU/L (23-200)
[2019-04-20 05:12] LABS: ALANINE AMINOTRANSFERASE 24 IU/L (13-69); ALBUMIN 3.5 g/dl (3.3-4.9); ALKALINE PHOSPHATASE 110 IU/L (42-121); ANION GAP 9 (5-13); ASPARTATE AMINO TRANSFERASE 36 IU/L (15-46); BILIRUBIN,INDIRECT 0.3 mg/dl (0-1.1); BILIRUBIN,TOTAL 0.3 mg/dl (0.2-1.3); BLOOD UREA NITROGEN 22 mg/dl (7-20); CALCIUM 9.5 mg/dl (8.4-10.2); CARBON DIOXIDE 22 mmol/L (21-31); CHLORIDE 107 mmol/L (97-110); CHOL/HDL RATIO 4.4 RATIO; CHOLESTEROL 230 mg/dl (100-200); CREATININE 1.49 mg/dl (0.44-1.00); Estimated GFR 42 mL/min (>60); GLUCOSE 368 mg/dl (70-220); HDL CHOLESTEROL 52 mg/dl (35-98); LDL CHOLESTEROL,CALCULATED 161 mg/dl; MAGNESIUM 1.5 mg/dl (1.7-2.5); POTASSIUM 4.6 mmol/L (3.5-5.1); SODIUM 138 mmol/L (135-144); TRIGLYCERIDES 83 mg/dl (0-149)
[2019-04-20 05:16] LABS: HEMOGLOBIN A1C 6.7 % (0-5.9)
[2019-04-20 05:19] LABS: CK-MB 0.68 ng/ml (0.0-2.4); TROPONIN-I < 0.012 ng/ml (0.000-0.120)
[2019-04-20 06:09] LABS: THYROID STIMULATING HORMONE 0.361 MIU/L (0.465-4.680)
[2019-04-20] MEDS: LEVOTHYROXINE 50 MCG TAB PO (06:33)
[2019-04-20] MEDS: INSULIN ASPART [NOVOLOG] 3 ML PEN SC ×7 (08:02→20:43)
[2019-04-20] MEDS: METHYLPREDNISOLONE 125 MG INJ IV (08:04)
[2019-04-20] MEDS: ALBUTEROL/IPRATROPIUM (NEB) 3 ML AMP HHN ×4 (08:18→19:45)
[2019-04-20] MEDS: ASPIRIN (EC) 81 MG TAB PO (08:51)
[2019-04-20] MEDS: FUROSEMIDE 20 MG TAB PO ×2 (08:52→09:30)
[2019-04-20] MEDS: ISOSORBIDE MONONITRATE(SR)60 MG TAB PO (08:52)
[2019-04-20] MEDS: CLOPIDOGREL 75 MG TAB PO (08:53)
[2019-04-20] MEDS: FLUTICASONE/VILANTEROL 200-25 INH DEVICE INH (08:53)
[2019-04-20] MEDS: HEPARIN 5,000 UNIT/1 ML VIAL SC ×2 (08:54→20:43)
[2019-04-20] MEDS: LEVOFLOXACIN 500MG/D5W (PMX) 100 ML IVPB (10:27)
[2019-04-20] MEDS: HYDROCODONE/APAP (5/325) TAB PO (10:27)
[2019-04-20] MEDS: predniSONE 10 MG TAB PO (11:56)
[2019-04-20] MEDS ORDERED: predniSONE 50 MG TAB PO (12:30)
[2019-04-20] MEDS ORDERED: GLUCOSE GEL 15 GRAM TUBE BUCCAL (12:30)
[2019-04-20] MEDS ORDERED: GLUCOSE GEL 15 GRAM TUBE PO ×2 (12:30)
[2019-04-20] MEDS ORDERED: DEXTROSE 50% 50 ML SYRINGE IV ×2 (12:30)
[2019-04-20] MEDS ORDERED: GLUCAGON 1 MG INJ IM (12:30)
[2019-04-20] MEDS: MAGNESIUM SULFATE 2 GM/50 ML 50 ML IVPB (15:21)
[2019-04-20] MEDS: FUROSEMIDE 20 MG INJ IV (17:19)
[2019-04-20] MEDS: ATORVASTATIN 80 MG TAB PO (20:34)
[2019-04-21] MEDS: ACCU-CHEK XX (01:26)
[2019-04-21] MEDS: morphine 2 MG INJ IV ×5 (01:35→23:20)
[2019-04-21] MEDS ORDERED: ACCU-CHEK XX (02:00)
[2019-04-21 05:05] LABS: ADD MAN DIFF? NO
[2019-04-21 05:10] LABS: WHITE BLOOD COUNT 16.9 10^3/ul (4.8-10.8)
[2019-04-21 05:10] LABS: BASOPHILS % 0.1 % (0.0-2.0); HEMATOCRIT 26.3 % (37.0-47.0); HEMOGLOBIN 8.1 g/dl (12.0-16.0); LYMPHOCYTES # 1.9 10^3/ul (0.8-2.9); LYMPHOCYTES % 11.1 % (15.0-51.0); MEAN CORPUSCULAR HEMOGLOBIN 26.7 pg (29.0-33.0); MEAN CORPUSCULAR HGB CONC 30.8 g/dl (32.0-37.0); MEAN CORPUSCULAR VOLUME 86.8 fl (82.0-101.0); MEAN PLATELET VOLUME 9.4 fl (7.4-10.4); MONOCYTES % 5.6 % (0.0-11.0); NEUTROPHIL # 13.9 10^3/ul (1.6-7.5); NEUTROPHILS % 82.5 % (39.0-77.0); PLATELET COUNT 321 10^3/UL (140-415); RED BLOOD COUNT 3.03 10^6/ul (4.20-5.40); RED CELL DISTRIBUTION WIDTH 17.6 % (11.5-14.5)
[2019-04-21 05:31] LABS: ANION GAP 6 (5-13); BLOOD UREA NITROGEN 32 mg/dl (7-20); CALCIUM 9.5 mg/dl (8.4-10.2); CARBON DIOXIDE 26 mmol/L (21-31); CHLORIDE 105 mmol/L (97-110); CREATININE 1.74 mg/dl (0.44-1.00); Estimated GFR 36 mL/min (>60); GLUCOSE 182 mg/dl (70-220); POTASSIUM 4.8 mmol/L (3.5-5.1); SODIUM 137 mmol/L (135-144)
[2019-04-21] MEDS: LEVOTHYROXINE 50 MCG TAB PO (06:54)
[2019-04-21] MEDS: FUROSEMIDE 20 MG INJ IV (06:55)
[2019-04-21] MEDS: ALBUTEROL/IPRATROPIUM (NEB) 3 ML AMP HHN ×4 (07:38→19:45)
[2019-04-21] MEDS: CLOPIDOGREL 75 MG TAB PO (08:15)
[2019-04-21] MEDS: ASPIRIN (EC) 81 MG TAB PO (08:15)
[2019-04-21] MEDS: ISOSORBIDE MONONITRATE(SR)60 MG TAB PO (08:16)
[2019-04-21] MEDS: predniSONE 50 MG TAB PO (08:16)
[2019-04-21] MEDS: FLUTICASONE/VILANTEROL 200-25 INH DEVICE INH (08:16)
[2019-04-21] MEDS: LEVOFLOXACIN 500MG/D5W (PMX) 100 ML IVPB (08:17)
[2019-04-21] MEDS: HEPARIN 5,000 UNIT/1 ML VIAL SC ×2 (08:34→20:31)
[2019-04-21] MEDS: INSULIN ASPART [NOVOLOG] 3 ML PEN SC ×7 (08:34→20:32)
[2019-04-21] MEDS: INSULIN GLARGINE [LANTus] (100 UNITS/ML) SYG SC (08:34)
[2019-04-21] MEDS: HYDROCODONE/APAP (5/325) TAB PO ×2 (10:35→20:33)
[2019-04-21] MEDS: ATORVASTATIN 80 MG TAB PO (20:29)
[2019-04-22] MEDS: ACCU-CHEK XX (02:00)
[2019-04-22 05:30] LABS: ADD MAN DIFF? NO
[2019-04-22 05:50] LABS: WHITE BLOOD COUNT 10.4 10^3/ul (4.8-10.8)
[2019-04-22 05:50] LABS: BASOPHILS % 0.1 % (0.0-2.0); EOSINOPHILS # 0.1 10^3/ul (0.0-0.5); EOSINOPHILS % 0.8 % (0.0-7.0); HEMATOCRIT 28.3 % (37.0-47.0); HEMOGLOBIN 8.4 g/dl (12.0-16.0); LYMPHOCYTES # 3.6 10^3/ul (0.8-2.9); LYMPHOCYTES % 34.3 % (15.0-51.0); MEAN CORPUSCULAR HEMOGLOBIN 26.8 pg (29.0-33.0); MEAN CORPUSCULAR HGB CONC 29.7 g/dl (32.0-37.0); MEAN CORPUSCULAR VOLUME 90.4 fl (82.0-101.0); MEAN PLATELET VOLUME 9.7 fl (7.4-10.4); MONOCYTES % 9.3 % (0.0-11.0); NEUTROPHIL # 5.7 10^3/ul (1.6-7.5); NEUTROPHILS % 55.1 % (39.0-77.0); PLATELET COUNT 340 10^3/UL (140-415); RED BLOOD COUNT 3.13 10^6/ul (4.20-5.40); RED CELL DISTRIBUTION WIDTH 17.8 % (11.5-14.5)
[2019-04-22 06:02] LABS: MAGNESIUM 2.2 mg/dl (1.7-2.5)
[2019-04-22 06:02] LABS: PHOSPHORUS 4.9 mg/dl (2.5-4.9)
[2019-04-22 06:03] LABS: ANION GAP 6 (5-13); BLOOD UREA NITROGEN 37 mg/dl (7-20); CALCIUM 9.3 mg/dl (8.4-10.2); CARBON DIOXIDE 27 mmol/L (21-31); CHLORIDE 107 mmol/L (97-110); CREATININE 1.71 mg/dl (0.44-1.00); Estimated GFR 36 mL/min (>60); GLUCOSE 122 mg/dl (70-220); SODIUM 140 mmol/L (135-144)
[2019-04-22 06:14] LABS: POTASSIUM 4.3 mmol/L (3.5-5.1)
[2019-04-22] MEDS: LEVOTHYROXINE 50 MCG TAB PO (06:23)
[2019-04-22] MEDS: FUROSEMIDE 20 MG TAB PO (06:23)
[2019-04-22] MEDS: INSULIN ASPART [NOVOLOG] 3 ML PEN SC ×7 (08:00→21:00)
[2019-04-22] MEDS: FLUTICASONE/VILANTEROL 200-25 INH DEVICE INH (08:11)
[2019-04-22] MEDS: LEVOFLOXACIN 500MG/D5W (PMX) 100 ML IVPB (08:12)
[2019-04-22] MEDS: CLOPIDOGREL 75 MG TAB PO (08:12)
[2019-04-22] MEDS: ISOSORBIDE MONONITRATE(SR)60 MG TAB PO (08:13)
[2019-04-22] MEDS: ASPIRIN (EC) 81 MG TAB PO (08:13)
[2019-04-22] MEDS: morphine 2 MG INJ IV ×3 (08:14→23:54)
[2019-04-22] MEDS: INSULIN GLARGINE [LANTus] (100 UNITS/ML) SYG SC (08:26)
[2019-04-22] MEDS: predniSONE 50 MG TAB PO (08:27)
[2019-04-22] MEDS: HEPARIN 5,000 UNIT/1 ML VIAL SC ×2 (08:28→21:02)
[2019-04-22] MEDS: ALBUTEROL/IPRATROPIUM (NEB) 3 ML AMP HHN ×4 (08:37→20:00)
[2019-04-22] MEDS: HYDROCODONE/APAP (5/325) TAB PO ×2 (11:27→21:00)
[2019-04-22] MEDS: ATORVASTATIN 80 MG TAB PO (20:59)
[2019-04-23] MEDS: ACCU-CHEK XX (02:00)
[2019-04-23] MEDS: hydrALAzine 20 MG INJ IV (03:56)
[2019-04-23 05:24] LABS: ADD MAN DIFF? NO
[2019-04-23 05:27] LABS: BASOPHILS % 0.1 % (0.0-2.0); EOSINOPHILS # 0.2 10^3/ul (0.0-0.5); EOSINOPHILS % 1.8 % (0.0-7.0); HEMATOCRIT 29.6 % (37.0-47.0); HEMOGLOBIN 8.8 g/dl (12.0-16.0); LYMPHOCYTES # 3.5 10^3/ul (0.8-2.9); LYMPHOCYTES % 33.7 % (15.0-51.0); MEAN CORPUSCULAR HEMOGLOBIN 26.4 pg (29.0-33.0); MEAN CORPUSCULAR HGB CONC 29.7 g/dl (32.0-37.0); MEAN CORPUSCULAR VOLUME 88.9 fl (82.0-101.0); MEAN PLATELET VOLUME 9.5 fl (7.4-10.4); MONOCYTES % 9.4 % (0.0-11.0); NEUTROPHIL # 5.7 10^3/ul (1.6-7.5); NEUTROPHILS % 54.7 % (39.0-77.0); PLATELET COUNT 350 10^3/UL (140-415); RED BLOOD COUNT 3.33 10^6/ul (4.20-5.40); RED CELL DISTRIBUTION WIDTH 17.4 % (11.5-14.5)
[2019-04-23 05:27] LABS: WHITE BLOOD COUNT 10.5 10^3/ul (4.8-10.8)
[2019-04-23 05:54] LABS: ANION GAP 5 (5-13); BLOOD UREA NITROGEN 37 mg/dl (7-20); CALCIUM 9.9 mg/dl (8.4-10.2); CARBON DIOXIDE 28 mmol/L (21-31); CHLORIDE 107 mmol/L (97-110); CREATININE 1.52 mg/dl (0.44-1.00); Estimated GFR 42 mL/min (>60); GLUCOSE 137 mg/dl (70-220); POTASSIUM 4.3 mmol/L (3.5-5.1); SODIUM 140 mmol/L (135-144)
[2019-04-23 05:57] LABS: PHOSPHORUS 4.8 mg/dl (2.5-4.9)
[2019-04-23] MEDS: LEVOTHYROXINE 50 MCG TAB PO (06:17)
[2019-04-23] MEDS: FUROSEMIDE 20 MG TAB PO (06:17)
[2019-04-23] MEDS: INSULIN ASPART [NOVOLOG] 3 ML PEN SC ×7 (08:00→20:21)
[2019-04-23] MEDS: INSULIN GLARGINE [LANTus] (100 UNITS/ML) SYG SC (08:00)
[2019-04-23] MEDS: LEVOFLOXACIN 500MG/D5W (PMX) 100 ML IVPB (09:03)
[2019-04-23] MEDS: ASPIRIN (EC) 81 MG TAB PO (09:04)
[2019-04-23] MEDS: predniSONE 50 MG TAB PO (09:04)
[2019-04-23] MEDS: CLOPIDOGREL 75 MG TAB PO (09:04)
[2019-04-23] MEDS: ISOSORBIDE MONONITRATE(SR)60 MG TAB PO (09:04)
[2019-04-23] MEDS: morphine 2 MG INJ IV ×3 (09:24→20:20)
[2019-04-23] MEDS: HEPARIN 5,000 UNIT/1 ML VIAL SC ×2 (09:41→20:27)
[2019-04-23] MEDS: FLUTICASONE/VILANTEROL 200-25 INH DEVICE INH (10:01)
[2019-04-23] MEDS: ALBUTEROL/IPRATROPIUM (NEB) 3 ML AMP HHN ×4 (11:31→20:00)
[2019-04-23] MEDS: ATORVASTATIN 80 MG TAB PO (20:14)
[2019-04-24] MEDS: morphine 2 MG INJ IV ×4 (00:22→18:04)
[2019-04-24] MEDS: ONDANSETRON 4 MG INJ IV (00:35)
[2019-04-24] MEDS: ACCU-CHEK XX (02:00)
[2019-04-24 05:59] LABS: ADD MAN DIFF? NO
[2019-04-24 06:11] LABS: WHITE BLOOD COUNT 10.8 10^3/ul (4.8-10.8)
[2019-04-24 06:11] LABS: BASOPHILS % 0.2 % (0.0-2.0); EOSINOPHILS # 0.2 10^3/ul (0.0-0.5); EOSINOPHILS % 2.2 % (0.0-7.0); HEMATOCRIT 29.6 % (37.0-47.0); HEMOGLOBIN 8.9 g/dl (12.0-16.0); LYMPHOCYTES # 3.6 10^3/ul (0.8-2.9); LYMPHOCYTES % 33.6 % (15.0-51.0); MEAN CORPUSCULAR HEMOGLOBIN 26.5 pg (29.0-33.0); MEAN CORPUSCULAR HGB CONC 30.1 g/dl (32.0-37.0); MEAN CORPUSCULAR VOLUME 88.1 fl (82.0-101.0); MEAN PLATELET VOLUME 9.8 fl (7.4-10.4); MONOCYTE # 1.1 10^3/ul (0.3-0.9); MONOCYTES % 10.6 % (0.0-11.0); NEUTROPHIL # 5.7 10^3/ul (1.6-7.5); PLATELET COUNT 354 10^3/UL (140-415); RED BLOOD COUNT 3.36 10^6/ul (4.20-5.40); RED CELL DISTRIBUTION WIDTH 17.2 % (11.5-14.5)
[2019-04-24] MEDS: LEVOTHYROXINE 50 MCG TAB PO (06:13)
[2019-04-24] MEDS: FUROSEMIDE 20 MG TAB PO (06:13)
[2019-04-24 06:33] LABS: ANION GAP 7 (5-13); BLOOD UREA NITROGEN 30 mg/dl (7-20); CALCIUM 9.7 mg/dl (8.4-10.2); CARBON DIOXIDE 28 mmol/L (21-31); CHLORIDE 107 mmol/L (97-110); CREATININE 1.43 mg/dl (0.44-1.00); Estimated GFR 45 mL/min (>60); GLUCOSE 117 mg/dl (70-220); POTASSIUM 4.2 mmol/L (3.5-5.1); SODIUM 142 mmol/L (135-144)
[2019-04-24 07:29] LABS: MAGNESIUM 1.9 mg/dl (1.7-2.5)
[2019-04-24 07:29] LABS: PHOSPHORUS 4.5 mg/dl (2.5-4.9)
[2019-04-24] MEDS: INSULIN ASPART [NOVOLOG] 3 ML PEN SC ×7 (08:00→20:30)
[2019-04-24] MEDS: ISOSORBIDE MONONITRATE(SR)60 MG TAB PO (08:28)
[2019-04-24] MEDS: ASPIRIN (EC) 81 MG TAB PO (08:28)
[2019-04-24] MEDS: FLUTICASONE/VILANTEROL 200-25 INH DEVICE INH (08:29)
[2019-04-24] MEDS: predniSONE 50 MG TAB PO (08:29)
[2019-04-24] MEDS: LEVOFLOXACIN 500MG/D5W (PMX) 100 ML IVPB (08:29)
[2019-04-24] MEDS: CLOPIDOGREL 75 MG TAB PO (08:29)
[2019-04-24] MEDS: ALBUTEROL/IPRATROPIUM (NEB) 3 ML AMP HHN ×4 (08:40→19:27)
[2019-04-24] MEDS: HEPARIN 5,000 UNIT/1 ML VIAL SC ×2 (08:49→20:30)
[2019-04-24] MEDS: INSULIN GLARGINE [LANTus] (100 UNITS/ML) SYG SC (08:51)
[2019-04-24] MEDS: ATORVASTATIN 80 MG TAB PO (20:17)
[2019-04-25] MEDS: morphine 2 MG INJ IV ×5 (00:07→23:48)
[2019-04-25] MEDS: ONDANSETRON 4 MG INJ IV ×2 (00:09→20:14)
[2019-04-25] MEDS: ACCU-CHEK XX (02:20)
[2019-04-25] MEDS: LEVOTHYROXINE 50 MCG TAB PO (05:48)
[2019-04-25] MEDS: LEVOFLOXACIN 500 MG TAB PO (05:48)
[2019-04-25] MEDS: FUROSEMIDE 20 MG TAB PO (05:48)
[2019-04-25] MEDS: ALBUTEROL/IPRATROPIUM (NEB) 3 ML AMP HHN ×4 (08:00→20:32)
[2019-04-25] MEDS: predniSONE 50 MG TAB PO (09:00)
[2019-04-25] MEDS: CLOPIDOGREL 75 MG TAB PO (09:19)
[2019-04-25] MEDS: FLUTICASONE/VILANTEROL 200-25 INH DEVICE INH (09:19)
[2019-04-25] MEDS: ISOSORBIDE MONONITRATE(SR)60 MG TAB PO (09:20)
[2019-04-25] MEDS: ASPIRIN (EC) 81 MG TAB PO (09:20)
[2019-04-25] MEDS: HEPARIN 5,000 UNIT/1 ML VIAL SC ×2 (09:37→20:40)
[2019-04-25] MEDS: INSULIN GLARGINE [LANTus] (100 UNITS/ML) SYG SC (09:37)
[2019-04-25] MEDS: INSULIN ASPART [NOVOLOG] 3 ML PEN SC ×7 (09:37→20:28)
[2019-04-25] MEDS: NITROGLYCERIN (SL) 0.4 MG TAB SL ×2 (15:41→15:47)
[2019-04-25] MEDS ORDERED: NITROGLYCERIN (SL) 0.4 MG TAB SL (16:00)
[2019-04-25] MEDS: hydrALAzine 20 MG INJ IV (17:13)
[2019-04-25 17:21] LABS: CREATINE KINASE 30 IU/L (23-200)
[2019-04-25 17:31] LABS: CK INDEX 0.7; CK-MB 0.22 ng/ml (0.0-2.4); TROPONIN-I < 0.012 ng/ml (0.000-0.120)
[2019-04-25] MEDS: ATORVASTATIN 80 MG TAB PO (20:15)
[2019-04-25] MEDS: HYDROCODONE/APAP (5/325) TAB PO (21:56)
[2019-04-26] MEDS: ACCU-CHEK XX (02:00)
[2019-04-26] MEDS: FUROSEMIDE 20 MG TAB PO (06:00)
[2019-04-26] MEDS: morphine 2 MG INJ IV (06:27)
[2019-04-26] MEDS: LEVOFLOXACIN 500 MG TAB PO (06:30)
[2019-04-26] MEDS: LEVOTHYROXINE 50 MCG TAB PO (06:30)
[2019-04-26] MEDS: ALBUTEROL/IPRATROPIUM (NEB) 3 ML AMP HHN (08:00)
[2019-04-26] MEDS: INSULIN ASPART [NOVOLOG] 3 ML PEN SC ×2 (08:00)
[2019-04-26] MEDS: INSULIN GLARGINE [LANTus] (100 UNITS/ML) SYG SC (08:34)
[2019-04-26] MEDS: predniSONE 50 MG TAB PO (09:00)
[2019-04-26] MEDS: FLUTICASONE/VILANTEROL 200-25 INH DEVICE INH (09:40)
[2019-04-26] MEDS: CLOPIDOGREL 75 MG TAB PO (09:44)
[2019-04-26] MEDS: ASPIRIN (EC) 81 MG TAB PO (09:45)
[2019-04-26] MEDS: ISOSORBIDE MONONITRATE(SR)60 MG TAB PO (09:47)
[2019-04-26] MEDS: HEPARIN 5,000 UNIT/1 ML VIAL SC (10:12)
== END 2019-04-26 11:58 | disposition home or self-care (01) | DRG 291 ==
LOC: 6WM 22:18 → E/R 16:34 → 6WM 20:44
DX: I13.0 Hypertensive heart and chronic kidney disease with heart failure and stage 1 through stage 4 chronic kidney disease, or unspecified chronic kidney disease (principal); I50.33 Acute on chronic diastolic (congestive) heart failure; J96.20 Acute and chronic respiratory failure, unspecified whether with hypoxia or hypercapnia; J44.1 Chronic obstructive pulmonary disease with (acute) exacerbation; N18.9 Chronic kidney disease, unspecified; E11.22 Type 2 diabetes mellitus with diabetic chronic kidney disease; Z87.891 Personal history of nicotine dependence; Z99.81 Dependence on supplemental oxygen; I25.10 Atherosclerotic heart disease of native coronary artery without angina pectoris; E03.9 Hypothyroidism, unspecified; Z95.1 Presence of aortocoronary bypass graft; Z95.5 Presence of coronary angioplasty implant and graft; E78.5 Hyperlipidemia, unspecified; Z79.4 Long term (current) use of insulin; E66.9 Obesity, unspecified; Z68.32 Body mass index [BMI] 32.0-32.9, adult
CPT/HCPCS: 71045; 80048; 80053; 80061; 82550; 82553; 82962; 83036; 83690; 83735; 83880; 84100; 84443; 84484; 85025; 85610; 85730; 93005; 93306; 94640; 94644; 94664; 96374; 96375; 99285-25; G0378

== ENCOUNTER 2019-05-26 10:48 | Inpatient (IN) | payer BC ==
[2019-05-26] MEDS: ALBUTEROL 0.083% (NEB) 2.5 MG/3 ML AMP HHN (11:22)
[2019-05-26] MEDS: NITROGLYCERIN 2% 1 GM OINT PKT TD (11:23)
[2019-05-26] MEDS: ASPIRIN 325 MG TAB PO (11:23)
[2019-05-26] MEDS: ONDANSETRON 4 MG INJ IV (11:55)
[2019-05-26 12:01] LABS: ADD MAN DIFF? NO
[2019-05-26] MEDS: morphine 4 MG/ML VIAL IV (12:02)
[2019-05-26 12:07] LABS: WHITE BLOOD COUNT 11.3 10^3/ul (4.8-10.8)
[2019-05-26 12:07] LABS: BASOPHILS % 0.4 % (0.0-2.0); EOSINOPHILS # 0.4 10^3/ul (0.0-0.5); EOSINOPHILS % 3.4 % (0.0-7.0); HEMOGLOBIN 10.8 g/dl (12.0-16.0); LYMPHOCYTES % 26.9 % (15.0-51.0); MEAN CORPUSCULAR HEMOGLOBIN 25.8 pg (29.0-33.0); MEAN CORPUSCULAR VOLUME 86.1 fl (82.0-101.0); MEAN PLATELET VOLUME 9.3 fl (7.4-10.4); MONOCYTE # 1.2 10^3/ul (0.3-0.9); MONOCYTES % 10.6 % (0.0-11.0); NEUTROPHIL # 6.6 10^3/ul (1.6-7.5); NEUTROPHILS % 58.3 % (39.0-77.0); PLATELET COUNT 307 10^3/UL (140-415); RED BLOOD COUNT 4.18 10^6/ul (4.20-5.40); RED CELL DISTRIBUTION WIDTH 16.3 % (11.5-14.5)
[2019-05-26 12:21] LABS: ALANINE AMINOTRANSFERASE 14 IU/L (13-69); ALBUMIN 3.3 g/dl (3.3-4.9); ALBUMIN/GLOBULIN RATIO 0.84; ALKALINE PHOSPHATASE 68 IU/L (42-121); ANION GAP 6 (5-13); ASPARTATE AMINO TRANSFERASE 30 IU/L (15-46); BILIRUBIN,INDIRECT 0.5 mg/dl (0-1.1); BILIRUBIN,TOTAL 0.5 mg/dl (0.2-1.3); BLOOD UREA NITROGEN 23 mg/dl (7-20); CALCIUM 9.7 mg/dl (8.4-10.2); CARBON DIOXIDE 26 mmol/L (21-31); CHLORIDE 109 mmol/L (97-110); Estimated GFR 46 mL/min (>60); GLUCOSE 62 mg/dl (70-220); POTASSIUM 4.4 mmol/L (3.5-5.1); SODIUM 141 mmol/L (135-144); TOTAL PROTEIN 7.2 g/dl (6.1-8.1)
[2019-05-26 12:28] LABS: INR 0.88; PARTIAL THROMBOPLASTIN TIME 24.7 Sec (23.0-35.0); PT RATIO 0.9
[2019-05-26 12:36] LABS: B-TYPE NATRIURETIC PEPTIDE 1740 PG/ML (0-125); TROPONIN-I < 0.012 ng/ml (0.000-0.120)
[2019-05-26] MEDS ORDERED: ONDANSETRON 4 MG INJ IV (14:00)
[2019-05-26] MEDS ORDERED: ACETAMINOPHEN 325 MG TAB PO ×2 (14:00→17:00)
[2019-05-26] MEDS: SOD CHLORIDE 0.9% 1,000 ML IV (16:43)
[2019-05-26] MEDS ORDERED: GLUCAGON 1 MG INJ IM (17:00)
[2019-05-26] MEDS ORDERED: DOCUSATE SODIUM 100 MG CAP PO (17:00)
[2019-05-26] MEDS ORDERED: GLUCOSE GEL 15 GRAM TUBE BUCCAL (17:00)
[2019-05-26] MEDS ORDERED: DEXTROSE 50% 50 ML SYRINGE IV ×2 (17:00)
[2019-05-26] MEDS ORDERED: ALBUTEROL/IPRATROPIUM (NEB) 3 ML AMP HHN (17:00)
[2019-05-26] MEDS ORDERED: NACL 0.9% 3 ML SYG IV (17:00)
[2019-05-26] MEDS ORDERED: GLUCOSE GEL 15 GRAM TUBE PO ×2 (17:00)
[2019-05-26] MEDS: INSULIN ASPART [NOVOLOG] 3 ML PEN SC (17:55)
[2019-05-26] MEDS: morphine 2 MG INJ IV ×2 (18:33→22:01)
[2019-05-26] MEDS: ALBUTEROL/IPRATROPIUM (NEB) 3 ML AMP HHN (19:55)
[2019-05-26 20:52] LABS: CREATINE KINASE 169 IU/L (23-200)
[2019-05-26] MEDS: ATORVASTATIN 80 MG TAB PO (21:00)
[2019-05-26] MEDS: HEPARIN 5,000 UNIT/1 ML VIAL SC (22:08)
[2019-05-27] MEDS: morphine 2 MG INJ IV ×6 (00:26→15:52)
[2019-05-27] MEDS: ACCU-CHEK XX (02:00)
[2019-05-27] MEDS: hydrALAzine 20 MG INJ IV (02:21)
[2019-05-27] MEDS: LEVOTHYROXINE 50 MCG TAB PO (06:28)
[2019-05-27] MEDS: FUROSEMIDE 20 MG TAB PO (06:29)
[2019-05-27 07:05] LABS: ADD MAN DIFF? NO
[2019-05-27 07:11] LABS: BASOPHILS % 0.4 % (0.0-2.0); EOSINOPHILS # 0.4 10^3/ul (0.0-0.5); EOSINOPHILS % 3.6 % (0.0-7.0); HEMATOCRIT 33.6 % (37.0-47.0); HEMOGLOBIN 10.1 g/dl (12.0-16.0); LYMPHOCYTES # 2.9 10^3/ul (0.8-2.9); MEAN CORPUSCULAR HEMOGLOBIN 26.2 pg (29.0-33.0); MEAN CORPUSCULAR HGB CONC 30.1 g/dl (32.0-37.0); MEAN CORPUSCULAR VOLUME 87.3 fl (82.0-101.0); MEAN PLATELET VOLUME 9.5 fl (7.4-10.4); MONOCYTE # 0.8 10^3/ul (0.3-0.9); MONOCYTES % 7.8 % (0.0-11.0); NEUTROPHIL # 5.9 10^3/ul (1.6-7.5); NEUTROPHILS % 58.9 % (39.0-77.0); PLATELET COUNT 288 10^3/UL (140-415); RED BLOOD COUNT 3.85 10^6/ul (4.20-5.40); RED CELL DISTRIBUTION WIDTH 16.4 % (11.5-14.5)
[2019-05-27 07:40] LABS: ALANINE AMINOTRANSFERASE 27 IU/L (13-69); ALBUMIN 2.9 g/dl (3.3-4.9); ALBUMIN/GLOBULIN RATIO 0.82; ALKALINE PHOSPHATASE 97 IU/L (42-121); ANION GAP 4 (5-13); ASPARTATE AMINO TRANSFERASE 43 IU/L (15-46); BILIRUBIN,INDIRECT 0.3 mg/dl (0-1.1); BILIRUBIN,TOTAL 0.3 mg/dl (0.2-1.3); BLOOD UREA NITROGEN 26 mg/dl (7-20); CALCIUM 9.3 mg/dl (8.4-10.2); CARBON DIOXIDE 26 mmol/L (21-31); CHLORIDE 111 mmol/L (97-110); CHOLESTEROL 200 mg/dl (100-200); CREATININE 1.49 mg/dl (0.44-1.00); Estimated GFR 42 mL/min (>60); GLUCOSE 62 mg/dl (70-220); HDL CHOLESTEROL 33 mg/dl (35-98); LDL CHOLESTEROL,CALCULATED 122 mg/dl; MAGNESIUM 2.1 mg/dl (1.7-2.5); PHOSPHORUS 5.6 mg/dl (2.5-4.9); POTASSIUM 4.2 mmol/L (3.5-5.1); SODIUM 141 mmol/L (135-144); TOTAL PROTEIN 6.4 g/dl (6.1-8.1); TRIGLYCERIDES 223 mg/dl (0-149)
[2019-05-27 07:46] LABS: B-TYPE NATRIURETIC PEPTIDE 1020 PG/ML (0-125)
[2019-05-27 07:48] LABS: FREE THYROXINE INDEX (Calc) 2.73 ug/ml (0.65-3.89); T3 UPTAKE 35.9 % (23.5-40.5); T4 (THYROXINE) 7.6 ug/dl (5.5-11.0)
[2019-05-27] MEDS: INSULIN ASPART [NOVOLOG] 3 ML PEN SC ×3 (07:53→17:04)
[2019-05-27 07:55] LABS: HEMOGLOBIN A1C 6.8 % (0-5.9)
[2019-05-27] MEDS: ALBUTEROL/IPRATROPIUM (NEB) 3 ML AMP HHN ×3 (08:07→19:56)
[2019-05-27 08:12] LABS: CREATINE KINASE 138 IU/L (23-200)
[2019-05-27 08:25] LABS: CK INDEX 0.9; CK-MB 1.24 ng/ml (0.0-2.4); TROPONIN-I < 0.012 ng/ml (0.000-0.120)
[2019-05-27] MEDS: FLUTICASONE/VILANTEROL 200-25 INH DEVICE INH (08:37)
[2019-05-27] MEDS: ISOSORBIDE MONONITRATE(SR)60 MG TAB PO (08:37)
[2019-05-27] MEDS: ASPIRIN (EC) 81 MG TAB PO (08:39)
[2019-05-27] MEDS: CLOPIDOGREL 75 MG TAB PO (08:39)
[2019-05-27] MEDS: ENOXAPARIN 80 MG/0.8 ML SYG SC (08:39)
[2019-05-27] MEDS: SOD CHLORIDE 0.9% 1,000 ML IV (09:43)
[2019-05-27] MEDS ORDERED: ALBUTEROL/IPRATROPIUM (NEB) 3 ML AMP HHN (20:00)
[2019-05-27] MEDS: ATORVASTATIN 80 MG TAB PO (21:55)
[2019-05-27] MEDS: HYDROCODONE/APAP (5/325) TAB PO (21:55)
[2019-05-28] MEDS: ACCU-CHEK XX (02:00)
[2019-05-28] MEDS: SOD CHLORIDE 0.9% 1,000 ML IV (03:22)
[2019-05-28] MEDS: HYDROCODONE/APAP (5/325) TAB PO ×3 (03:22→17:20)
[2019-05-28] MEDS: FUROSEMIDE 20 MG TAB PO (06:27)
[2019-05-28] MEDS: LEVOTHYROXINE 50 MCG TAB PO (06:27)
[2019-05-28 07:51] LABS: ADD MAN DIFF? NO
[2019-05-28] MEDS: INSULIN ASPART [NOVOLOG] 3 ML PEN SC ×3 (07:55→18:16)
[2019-05-28 07:56] LABS: WHITE BLOOD COUNT 9.7 10^3/ul (4.8-10.8)
[2019-05-28 07:56] LABS: HEMATOCRIT 32.7 % (37.0-47.0); HEMOGLOBIN 9.6 g/dl (12.0-16.0); MEAN CORPUSCULAR VOLUME 87.9 fl (82.0-101.0); RED BLOOD COUNT 3.72 10^6/ul (4.20-5.40)
[2019-05-28 07:57] LABS: BASOPHILS % 0.4 % (0.0-2.0); EOSINOPHILS # 0.4 10^3/ul (0.0-0.5); EOSINOPHILS % 3.9 % (0.0-7.0); LYMPHOCYTES % 30.9 % (15.0-51.0); MEAN CORPUSCULAR HEMOGLOBIN 25.8 pg (29.0-33.0); MEAN CORPUSCULAR HGB CONC 29.4 g/dl (32.0-37.0); MEAN PLATELET VOLUME 9.9 fl (7.4-10.4); MONOCYTE # 0.9 10^3/ul (0.3-0.9); MONOCYTES % 9.1 % (0.0-11.0); NEUTROPHIL # 5.4 10^3/ul (1.6-7.5); NEUTROPHILS % 55.5 % (39.0-77.0); PLATELET COUNT 290 10^3/UL (140-415); RED CELL DISTRIBUTION WIDTH 16.2 % (11.5-14.5)
[2019-05-28] MEDS: ALBUTEROL/IPRATROPIUM (NEB) 3 ML AMP HHN ×3 (08:06→20:24)
[2019-05-28 08:15] LABS: CREATINE KINASE 129 IU/L (23-200)
[2019-05-28] MEDS: FLUTICASONE/VILANTEROL 200-25 INH DEVICE INH (08:19)
[2019-05-28] MEDS: ASPIRIN (EC) 81 MG TAB PO (08:20)
[2019-05-28] MEDS: CLOPIDOGREL 75 MG TAB PO (08:20)
[2019-05-28] MEDS: ISOSORBIDE MONONITRATE(SR)60 MG TAB PO (08:20)
[2019-05-28 08:27] LABS: B-TYPE NATRIURETIC PEPTIDE 680 PG/ML (0-125)
[2019-05-28 08:28] LABS: CK-MB 1.27 ng/ml (0.0-2.4); TROPONIN-I < 0.012 ng/ml (0.000-0.120)
[2019-05-28 08:59] LABS: ANION GAP 3 (5-13); BLOOD UREA NITROGEN 24 mg/dl (7-20); CALCIUM 9.1 mg/dl (8.4-10.2); CARBON DIOXIDE 25 mmol/L (21-31); CHLORIDE 110 mmol/L (97-110); CREATININE 1.48 mg/dl (0.44-1.00); Estimated GFR 43 mL/min (>60); GLUCOSE 119 mg/dl (70-220); POTASSIUM 4.8 mmol/L (3.5-5.1); SODIUM 138 mmol/L (135-144)
[2019-05-28] MEDS: REGADENOSON 0.4 MG/5 ML SYG (09:34)
[2019-05-28] MEDS: ONDANSETRON 4 MG INJ IV (10:55)
[2019-05-28] MEDS: ATORVASTATIN 80 MG TAB PO (21:26)
[2019-05-29] MEDS: hydrALAzine 20 MG INJ IV (00:18)
[2019-05-29] MEDS: ACCU-CHEK XX (02:00)
[2019-05-29] MEDS: HYDROCODONE/APAP (5/325) TAB PO ×2 (02:50→12:09)
[2019-05-29] MEDS: LEVOTHYROXINE 50 MCG TAB PO (06:04)
[2019-05-29] MEDS: FUROSEMIDE 20 MG TAB PO (06:05)
[2019-05-29] MEDS: ASPIRIN (EC) 81 MG TAB PO (08:07)
[2019-05-29] MEDS: CLOPIDOGREL 75 MG TAB PO (08:07)
[2019-05-29] MEDS: ISOSORBIDE MONONITRATE(SR)60 MG TAB PO (08:08)
[2019-05-29] MEDS: FLUTICASONE/VILANTEROL 200-25 INH DEVICE INH (08:11)
[2019-05-29] MEDS: traMADol 50 MG TAB PO (08:20)
[2019-05-29] MEDS: INSULIN ASPART [NOVOLOG] 3 ML PEN SC ×2 (08:26→13:07)
[2019-05-29] MEDS: ALBUTEROL/IPRATROPIUM (NEB) 3 ML AMP HHN ×2 (13:46)
== END 2019-05-29 15:50 | disposition home or self-care (01) | DRG 191 ==
LOC: E/R 10:48 → TEL 13:43
DX: J44.1 Chronic obstructive pulmonary disease with (acute) exacerbation (principal); I50.30 Unspecified diastolic (congestive) heart failure; I11.0 Hypertensive heart disease with heart failure; Z99.81 Dependence on supplemental oxygen; R07.9 Chest pain, unspecified; I25.10 Atherosclerotic heart disease of native coronary artery without angina pectoris; E03.9 Hypothyroidism, unspecified; E11.9 Type 2 diabetes mellitus without complications; E78.5 Hyperlipidemia, unspecified; M17.11 Unilateral primary osteoarthritis, right knee; G89.4 Chronic pain syndrome; E66.9 Obesity, unspecified; Z68.33 Body mass index [BMI] 33.0-33.9, adult; Z79.4 Long term (current) use of insulin; Z79.82 Long term (current) use of aspirin; I25.2 Old myocardial infarction; Z95.1 Presence of aortocoronary bypass graft; Z87.891 Personal history of nicotine dependence; Z90.710 Acquired absence of both cervix and uterus; Z90.49 Acquired absence of other specified parts of digestive tract
CPT/HCPCS: 36415; 71045; 73562; 78452; 80048; 80053; 80061; 82550; 82553; 82962; 83036; 83735; 83880; 84100; 84436; 84439; 84443; 84479; 84484; 85025; 85610; 85730; 93005; 93017; 93306; 94640; 94664; 96374; 96375; 97116; 97161; 99285-25; G0378